=== PATIENT | male | born 1975 | race Asian ===

== ENCOUNTER 2019-08-01 11:06 | Inpatient (IN) | payer BC, MEDICAID ==
[~2019-08-01] VITALS: Ht 162.6 cm; Wt 61.7 kg
[2019-08-01] MEDS ORDERED: RISP.5 PO (11:41)
[2019-08-01] MEDS ORDERED: HALOPERIDOL 5 MG TABLET PO ONE (12:00)
[2019-08-01] MEDS ORDERED: DiphenhydrAMINE HCL 50 MG CAPSULE PO ONE (12:00)
[2019-08-01] MEDS ORDERED: LORazepam 2 MG TABLET PO ONE (12:00)
[2019-08-01 12:04] LABS: BASOPHILS % (AUTO) 0.3 % (0.0-2.0); EOSINOPHILS % (AUTO) 0.3 % (1.0-6.0); HEMATOCRIT 49.1 % (41-53); HEMOGLOBIN 17.2 g/dL (13.5-17.5); LYMPHOCYTES # (AUTO) 0.9 K/uL (1.0-4.8); LYMPHOCYTES % (AUTO) 9.6 % (22.0-44.0); MEAN CORPUSCULAR HEMOGLOBIN 33.7 pg (26.0-34.0); MEAN CORPUSCULAR VOLUME 97 fL (80-100); MONOCYTES # (AUTO) 0.4 K/uL (0.1-1.0); MONOCYTES % (AUTO) 4.2 % (2.0-9.0); NEUTROPHILS # (AUTO) 7.8 K/uL (1.8-7.7); PLATELET COUNT (AUTO) 251 K/uL (150-450); RED BLOOD CELL COUNT(AUTO) 5.09 MIL/uL (4.50-5.90); RED CELL DISTRIBUTION WIDTH 13.9 % (11.5-14.5)
[2019-08-01 12:09] LABS: NEUTROPHILS % (AUTO) 85.6 % (40.0-70.0)
[2019-08-01] MEDS ORDERED: MAGNESIUM HYDROXIDE SUSPENSION 30 ML UDCUP PO PRN (12:15)
[2019-08-01] MEDS ORDERED: ACETAMINOPHEN 325 MG TABLET PO PRN (12:15)
[2019-08-01] MEDS ORDERED: PALIPERIDONE PALMITATE 234 MG/1.5 ML SYRINGE IM ONE (12:15)
[2019-08-01] MEDS ORDERED: MAG HYDROX/AL HYDROX/SIMETH ES 30 ML SUSPENSION UDCUP PO PRN (12:15)
[2019-08-01] MEDS ORDERED: ZOLPIDEM TARTRATE 10 MG TABLET PO PRN (12:15)
[2019-08-01] MEDS ORDERED: PROMETHAZINE HCL 25 MG TABLET PO PRN (12:15)
[2019-08-01] MEDS ORDERED: HydrOXYzine PAMOATE 50 MG CAPSULE PO PRN (12:15)
[2019-08-01] MEDS ORDERED: LOPERAMIDE HCL 2 MG CAPSULE PO PRN (12:15)
[2019-08-01] MEDS ORDERED: TUBERCULIN, PURIFIED PROTEIN DERIVATIVE 5 TU/0.1 ML SYRINGE ID ONE (12:15)
[2019-08-01] MEDS ORDERED: GuaiFENesin/D-METHORPHAN [SUGAR-FREE] 200-20MG/10 ML SYRUP UDCUP PO PRN (12:15)
[2019-08-01 12:16] LABS: ANION GAP 11 mmol/L (8-16); CALCIUM, TOTAL 9.5 mg/dL (8.8-10.5); CARBON DIOXIDE 25 mmol/L (22-29); CHLORIDE 105 mmol/L (98-107); CREATININE 0.72 mg/dL (0.60-1.30); GLOMERULAR FILTR. RATE CALC > 60 mL/min (>60); GLUCOSE,RANDOM 90 mg/dL (70-110); POTASSIUM 4.2 mmol/L (3.5-5.1); SODIUM SERUM 141 mmol/L (136-145); UREA NITROGEN, BLOOD 10 mg/dL (7-18)
[2019-08-01 12:21] LABS: ALANINE AMINOTRANSFERASE 36 U/L (12-78); ALBUMIN 4.3 g/dL (3.4-5.0); ALKALINE PHOSPHATASE 88 U/L (46-116); ASPARTATE AMINOTRANSFERASE 24 U/L (15-37); BILIRUBIN,TOTAL 0.5 mg/dL (0.1-1.0); TOTAL PROTEIN, SERUM 7.9 g/dL (6.4-8.2)
[2019-08-01 12:23] LABS: AMPHET/METH SCREEN,URINE NEGATIVE (NEGATIVE); BARBITURATE SCREEN, URINE NEGATIVE (NEGATIVE); BENZODIAZEPINES SCREEN,URINE NEGATIVE (NEGATIVE); CANNABINOID SCREEN,URINE NEGATIVE (NEGATIVE); COCAINE SCREEN,URINE NEGATIVE (NEGATIVE); METHADONE SCREEN, URINE NEGATIVE (NEGATIVE); OPIATE SCREEN,URINE NEGATIVE (NEGATIVE)
[2019-08-01 12:24] LABS: PHENCYCLIDINE SCREEN,URINE NEGATIVE (NEGATIVE)
[2019-08-01 16:08] VITALS: BP 110/63
[2019-08-01] MEDS: THIAMINE HCL 100 MG TABLET PO SCH (17:54)
[2019-08-01] MEDS: GABAPENTIN 100 MG CAPSULE PO SCH ×2 (17:54→22:19)
[2019-08-01] MEDS: DIVALPROEX SODIUM 250 MG ER TABLET PO SCH (17:55)
[2019-08-02 06:37] VITALS: BP 100/60
[2019-08-02 08:00] VITALS: BP 109/68
[2019-08-02] MEDS: MULTIVITAMINS WITH MINERALS, THERAPEUTIC TABLET PO SCH (08:54)
[2019-08-02] MEDS: THIAMINE HCL 100 MG TABLET PO SCH ×2 (08:54→17:14)
[2019-08-02] MEDS: FOLIC ACID 1 MG TABLET PO SCH (08:54)
[2019-08-02] MEDS: GABAPENTIN 100 MG CAPSULE PO SCH ×4 (08:54→20:25)
[2019-08-02] MEDS: DIVALPROEX SODIUM 250 MG ER TABLET PO SCH ×3 (08:54→17:15)
[2019-08-02 08:59] LABS: CHOL/HDL RATIO 5.4 (4.2-7.3); FREE T4 (FREE THYROXINE) 0.95 ng/dL (0.76-1.46); THYROID STIMULATING HORMONE 0.77 uIU/mL (0.36-3.74)
[2019-08-02 16:08] VITALS: BP 107/69
[2019-08-03 05:23] VITALS: BP 102/63
[2019-08-03 08:18] VITALS: BP 100/59
[2019-08-03] MEDS: THIAMINE HCL 100 MG TABLET PO SCH ×2 (08:30→16:08)
[2019-08-03] MEDS: FOLIC ACID 1 MG TABLET PO SCH (08:30)
[2019-08-03] MEDS: DIVALPROEX SODIUM 250 MG ER TABLET PO SCH ×3 (08:30→16:08)
[2019-08-03] MEDS: MULTIVITAMINS WITH MINERALS, THERAPEUTIC TABLET PO SCH (08:30)
[2019-08-03] MEDS: ATORVASTATIN CALCIUM 40 MG TABLET PO SCH (08:30)
[2019-08-03] MEDS: GABAPENTIN 100 MG CAPSULE PO SCH ×3 (08:30→16:08)
[2019-08-03 16:13] VITALS: BP 101/59
[2019-08-03] MEDS: GABAPENTIN 300 MG CAPSULE PO SCH (20:30)
[2019-08-04 04:42] VITALS: BP 107/76
[2019-08-04 08:28] VITALS: BP 133/78
[2019-08-04] MEDS: FOLIC ACID 1 MG TABLET PO SCH (08:58)
[2019-08-04] MEDS: ATORVASTATIN CALCIUM 40 MG TABLET PO SCH (08:58)
[2019-08-04] MEDS: DIVALPROEX SODIUM 250 MG ER TABLET PO SCH ×2 (08:58→12:03)
[2019-08-04] MEDS: MULTIVITAMINS WITH MINERALS, THERAPEUTIC TABLET PO SCH (08:58)
[2019-08-04] MEDS: THIAMINE HCL 100 MG TABLET PO SCH ×2 (08:58→16:21)
[2019-08-04] MEDS: GABAPENTIN 300 MG CAPSULE PO SCH ×2 (08:58→12:03)
[2019-08-04] MEDS ORDERED: GABA-531 PO (15:46)
[2019-08-04] MEDS ORDERED: DIVA250T45 PO ×2 (15:46→15:50)
[2019-08-04] MEDS ORDERED: PALI156D IM (15:46)
[2019-08-04] MEDS ORDERED: DIVA500T52 PO (15:48)
[2019-08-04] MEDS: LORazepam 2 MG TABLET PO PRN (16:21)
[2019-08-04] MEDS: GABAPENTIN 400 MG CAPSULE PO SCH ×2 (16:21→20:52)
[2019-08-04 16:59] VITALS: BP 104/66
[2019-08-04] MEDS ORDERED: DIVALPROEX SODIUM 250 MG ER TABLET PO SCH ×3 (17:00→21:00)
[2019-08-05 01:47] VITALS: BP 125/72
[2019-08-05] MEDS: LORazepam 2 MG TABLET PO PRN (02:00)
[2019-08-05 08:03] VITALS: BP 110/61
[2019-08-05] MEDS ORDERED: PALIPERIDONE PALMITATE 156 MG/ML SYRINGE IM ONE (09:00)
[2019-08-05] MEDS: MULTIVITAMINS WITH MINERALS, THERAPEUTIC TABLET PO SCH (09:34)
[2019-08-05] MEDS: ATORVASTATIN CALCIUM 40 MG TABLET PO SCH (09:34)
[2019-08-05] MEDS: FOLIC ACID 1 MG TABLET PO SCH (09:34)
[2019-08-05] MEDS: GABAPENTIN 400 MG CAPSULE PO SCH ×2 (09:34→13:17)
[2019-08-05] MEDS: THIAMINE HCL 100 MG TABLET PO SCH (09:34)
[2019-08-05] MEDS ORDERED: ATOR40TA28 PO (10:05)
== END 2019-08-05 13:28 | disposition home or self-care (01) | DRG 885 ==
LOC: EMS 11:08 → B3A 12:34
PROVIDERS: ADMIT Psychiatry & Neurology Psychiatry; ATTEND Psychiatry & Neurology Psychiatry
DX: F20.0 Paranoid schizophrenia (principal); E78.5 Hyperlipidemia, unspecified; F17.210 Nicotine dependence, cigarettes, uncomplicated; J45.909 Unspecified asthma, uncomplicated; Z91.19 Patient's noncompliance with other medical treatment and regimen; G47.00 Insomnia, unspecified
CPT/HCPCS: 83036; 84439; 84443; 86592; G0480